=== PATIENT | female | born 1970 | race Caucasian/White ===

== ENCOUNTER 2016-11-29 08:58 | Emergency (ER) | payer OTHER ==
[2016-11-29] MEDS ORDERED: IPRATROPIUM-ALBUTEROL 3 ML NEB INHALATION STA (09:13)
[2016-11-29] MEDS ORDERED: methylPREDNISolone SOD SUCCI 125 MG/2 ML VIAL IV STA (09:13)
--- NOTE | 2016-11-29 09:30 | ED ---
SOB HPI - General Chief Complaint: Shortness of Breath Stated Complaint: diff breathing Time Seen by Provider: 11/29/16 09:07 Source: patient Mode of arrival: wheelchair Limitations: no limitations - History of Present Illness Initial Comments: This is a 46-year-old female with a history of COPD who presents emergency department for shortness of breath. She states it started last night. She states that she is also coughing up yellow sputum. No fevers or chills. She states that this happens every year couple of times. She does continue to smoke at this time. She has no controller medications or inhalers at home. She denies any sick contacts. She does state that the shortness of breath seems to get worse with exertion and better with rest. She admits to associated wheezing. No pain. She denies any other complaints. - Related Data Previous Rx's Medication Instructions Recorded Hydrocodone/Acetaminophen [[place] 1 each PO Q6HR PRN #20 tab 11/12/14 5-325] Albuterol Inhaler [Ventolin Hfa 1 - 2 puff INHALATION Q6HR PRN #1 11/29/16 Inhaler] inhaler Levofloxacin [Levaquin] 500 mg PO DAILY #7 tab 11/29/16 predniSONE 50 mg PO DAILY #4 tab 11/29/16 Allergies Allergy/AdvReac Type Severity Reaction Status Date / Time No Known Allergies Allergy Verified 11/29/16 09:02 Review of Systems ROS Statement: Those systems with pertinent positive or pertinent negative responses have been documented in the HPI. ROS Other: All systems not noted in ROS Statement are negative. Past Medical History Past Medical History: COPD History of Any Multi-Drug Resistant Organisms: None Reported Past Surgical History: Orthopedic Surgery Past Psychological History: No Psychological Hx Reported Smoking Status: Current every day smoker Past Alcohol Use History: None Reported Past Drug Use History: None Reported General Exam - General Exam Comments Initial Comments: Constitutional: Awake alert Appears comfortable Head: Normocephalic atraumatic Eyes: no conjunctival injection No scleral icterus EOMI Neck: No JVD Supple Heart: Regular rate rhythm normal S1-S2 no murmurs Lungs: There is very mild inspiratory wheezing bilaterally, decreased breath sounds bilaterally No rales Abdomen: Soft nondistended nontender Extremities: Non edematous DP pulses intact Radial pulses intact Neuro: A&Ox3 No focal neurologic deficits Psych: Appropriate mood and affect Limitations: no limitations Course Vital Signs 07/30/17 07/30/17 07/30/17 09:00 09:14 09:18 Temperature 99.0 F Pulse Rate 110 H 112 H Respiratory 20 22 Rate Blood Pressure 175/100 O2 Sat by Pulse 90 L Oximetry 11/29/16 11/29/16 09:35 09:39 Temperature Pulse Rate 114 H 114 H Respiratory 24 Rate Blood Pressure 148/69 O2 Sat by Pulse 99 Oximetry Medical Decision Making - Medical Decision Making Is a 38-year-old female who presents emergency department for shortness of breath. She did have wheezing on examination. Chest x-ray did not reveal any pneumonia. Patient did feel much improved after breathing treatments and was given Solu-Medrol in the emergency department. I was able to get her up and walk her around the emergency department without her having any desaturations. This time I feel the patient is okay to go home. Going to send her home on albuterol, prednisone, and Levaquin. She is to follow-up the primary doctor. She was encouraged to return if she has worsening or changing symptoms. All questions were answered. - Lab Data Result diagrams: 11/29/16 09:34 11/29/16 09:34 Lab Results 11/29/16 11/29/16 Range/Units 09:34 09:34 WBC 15.1 H (3.8-10.6) k/uL RBC 5.35 (3.80-5.40) m/uL Hgb 16.3 H (11.4-16.0) gm/dL Hct 50.3 H (34.0-46.0) % MCV 93.9 (80.0-100.0) fL MCH 30.5 (25.0-35.0) pg MCHC 32.5 (31.0-37.0) g/dL RDW 14.5 (11.5-15.5) % Plt Count 358 (150-450) k/uL Neutrophils % 87 % Lymphocytes % 7 % Monocytes % 3 % Eosinophils % 1 % Basophils % 1 % Neutrophils # 13.1 H (1.3-7.7) k/uL Lymphocytes # 1.1 (1.0-4.8) k/uL Monocytes # 0.5 (0-1.0) k/uL Eosinophils # 0.2 (0-0.7) k/uL Basophils # 0.1 (0-0.2) k/uL Sodium 141 (137-145) mmol/L Potassium 4.4 (3.5-5.1) mmol/L Chloride 108 H (98-107) mmol/L Carbon Dioxide 24 (22-30) mmol/L Anion Gap 9 mmol/L BUN 11 (7-17) mg/dL Creatinine 0.71 (0.52-1.04) mg/dL Est GFR (MDRD) Af Amer >60 (>60 ml/min/1.73 sqM) Est GFR (MDRD) Non-Af >60 (>60 ml/min/1.73 sqM) Glucose 131 H (74-99) mg/dL Calcium 9.2 (8.4-10.2) mg/dL Magnesium 2.0 (1.6-2.3) mg/dL Total Bilirubin 0.6 (0.2-1.3) mg/dL AST 21 (14-36) U/L ALT 30 (9-52) U/L Alkaline Phosphatase 97 (38-126) U/L Total Protein 7.3 (6.3-8.2) g/dL Albumin 4.4 (3.5-5.0) g/dL Disposition Clinical Impression: Bronchitis Disposition: HOME SELF-CARE Condition: Stable Instructions: Acute Bronchitis (ED) Prescriptions: Albuterol Inhaler [Ventolin Hfa Inhaler] 1 - 2 puff INHALATION Q6HR PRN #1 inhaler PRN Reason: Shortness Of Breath Levofloxacin [Levaquin] 500 mg PO DAILY #7 tab predniSONE 50 mg PO DAILY #4 tab Referrals: Chalo Berry DO [Primary Care Provider] - 1-2 days
[2016-11-29 09:46] LABS: Basophils # (A) 0.1 k/uL (0-0.2); Basophils % (A) 1 %; CH 31.3; CHCM 33.5; Eosinophils # (A) 0.2 k/uL (0-0.7); Eosinophils % (A) 1 %; HCT 50.3 % (34.0-46.0); HDW 2.22; HGB 16.3 gm/dL (11.4-16.0); Luc % (Auto) 1; Lymphocytes # (A) 1.1 k/uL (1.0-4.8); Lymphocytes % (A) 7 %; MCH 30.5 pg (25.0-35.0); MCHC 32.5 g/dL (31.0-37.0); MCV 93.9 fL (80.0-100.0); Monocytes # (A) 0.5 k/uL (0-1.0); Monocytes % (A) 3 %; Neutrophils # (A) 13.1 k/uL (1.3-7.7); Neutrophils % (A) 87 %; RBC 5.35 m/uL (3.80-5.40); RDW 14.5 % (11.5-15.5); WBC 15.1 k/uL (3.8-10.6); WBC (Perox) 15.15
[2016-11-29 09:54] LABS: ALT 30 U/L (9-52); AST 21 U/L (14-36); Alkaline Phosphatase 97 U/L (38-126); Anion Gap 9 mmol/L; Blood Urea Nitrogen 11 mg/dL (7-17); Calcium 9.2 mg/dL (8.4-10.2); Carbon Dioxide 24 mmol/L (22-30); Chloride 108 mmol/L (98-107); Glucose 131 mg/dL (74-99); Non-African American GFR(MDRD) >60 (>60 ml/min/1.73 sqM); Potassium 4.4 mmol/L (3.5-5.1); Sodium 141 mmol/L (137-145); Total Bilirubin 0.6 mg/dL (0.2-1.3); Total Protein 7.3 g/dL (6.3-8.2)
--- NOTE | 2016-11-29 09:58 | XR ---
EXAMINATION TYPE: XR chest 2V DATE OF EXAM: 11/29/2016 COMPARISON: NONE HISTORY: Shortness of breath TECHNIQUE: Frontal and lateral views of the chest are obtained. FINDINGS: There is no focal air space opacity, pleural effusion, or pneumothorax seen. The cardiac silhouette size is within normal limits. Surgical clips are present in the upper abdomen. The osseou s structures are intact. IMPRESSION: No acute cardiopulmonary process.
[2016-11-29 10:15] VITALS: BP 167/81; PULSE 117; RESP 20; TEMP 98.2
== END 2016-11-29 10:13 | disposition home or self-care (01) ==
LOC: EC 08:58
DX: J40 Bronchitis, not specified as acute or chronic (principal); J44.9 Chronic obstructive pulmonary disease, unspecified; F17.200 Nicotine dependence, unspecified, uncomplicated; Z79.52 Long term (current) use of systemic steroids
CPT/HCPCS: 96374 ×2; 99285 ×2; 36415; 94640; 80053; 83735; 85025; 71020; J2930